=== PATIENT | male | born 1995 | race Hispanic/Latino ===

== ENCOUNTER 2024-09-15 16:53 | Outpatient (CLI) | payer OTHER | END 2024-09-15 16:54 | disposition home or self-care (01) | LOC: BURRAD 16:53 | PROVIDERS: ATTEND Preventive Medicine Public Health & General Preventive Medicine | DX: A15.0 Tuberculosis of lung (principal); R91.8 Other nonspecific abnormal finding of lung field | CPT/HCPCS: 71046 ==

== ENCOUNTER 2025-02-23 14:40 | Outpatient (CLI) | payer OTHER | END 2025-02-23 14:41 | disposition home or self-care (01) | LOC: BURRAD 14:40 | PROVIDERS: ATTEND Preventive Medicine Public Health & General Preventive Medicine | DX: A15.0 Tuberculosis of lung (principal) | CPT/HCPCS: 71046 ==